=== PATIENT | female | born 1990 | race Two or more races ===

== ENCOUNTER 2024-01-04 09:44 | Emergency (ER) | payer OTHER ==
[~2024-01-04] VITALS: Ht 157.5 cm; Wt 62.6 kg
[2024-01-04] MEDS ORDERED: KETOROLAC TROMETHAMINE 30 MG VIAL ONE (10:44)
[2024-01-04] MEDS ORDERED: METOCLOPRAMIDE HCL 5 MG/ML VIAL ONE (10:44)
[2024-01-04] MEDS ORDERED: KETOROLAC TROMETHAMINE 30 MG VIAL IM ONE (10:45)
[2024-01-04] MEDS ORDERED: METOCLOPRAMIDE HCL 5 MG/ML VIAL IM ONE (10:45)
[2024-01-04 11:03] LABS: HEMATOCRIT 38.8 % (36.0-45.00); HEMOGLOBIN 13.3 g/dL (12.0-15.00); MEAN CELL VOLUME 81.3 fL (80.00-100.00); MEAN CORPUSCULAR HEMOGLOBIN 27.8 pg (27.00-32.0); MEAN CORPUSCULAR HGB CONC 34.2 g/dl (32.0-36.0); PLATELET COUNT 268 K/uL (150-450); RED BLOOD COUNT 4.77 M/uL (4.00-6.00); RED CELL DISTRIBUTION WIDTH 13.7 % (11.5-14.5)
[2024-01-04 11:27] LABS: CALCIUM 9.4 mg/dL (8.5-10.1); CREATININE SERUM 0.98 mg/dL (0.55-1.02); GFR 66.19; POTASSIUM 4.04 mEq/L (3.5-5.1)
== END 2024-01-04 15:29 | disposition home or self-care (01) ==
LOC: ER 09:46
PROVIDERS: General Practice
DX: R51.9 Headache, unspecified (principal)